=== PATIENT | female | born 1955 | race Caucasian/White ===

== ENCOUNTER → 2016-05-06 | Outpatient (REF) | payer OTHER | LOC: M LAB REF 16:42 | PROVIDERS: ATTEND Nurse Practitioner Adult Health | DX: R19.7 Diarrhea, unspecified (principal) ==

== ENCOUNTER → 2016-05-23 | Outpatient (REF) | payer OTHER ==
[2016-05-23 14:26] LABS: CA 125 8.7 U/ML (<30.2)
[2016-05-27 00:06] LABS: TISSUE TRANSGLUTAMINASE IgG <2 U/mL (0-5)
== END | disposition home or self-care (01) ==
LOC: M LAB REF 11:56
PROVIDERS: ATTEND Nurse Practitioner Family
DX: Z85.43 Personal history of malignant neoplasm of ovary (principal); R14.0 Abdominal distension (gaseous); R19.5 Other fecal abnormalities

== ENCOUNTER → 2017-04-23 | Outpatient (REF) | payer OTHER ==
[2017-04-24 17:28] LABS: CA 125 8.6 U/ML (<30.2)
== END ==
LOC: M LAB REF 10:29
DX: Z85.42 Personal history of malignant neoplasm of other parts of uterus (principal); Z85.43 Personal history of malignant neoplasm of ovary

== ENCOUNTER 2017-12-17 08:01 | Day surgery (SDC) | payer OTHER ==
[2017-12-17] MEDS: PHENYLEPHRINE 2.5% OPHTH SOL 2ML OD (08:30)
[2017-12-17] MEDS: PROPARACAINE 0.5% OPHTH SOL 15ML OD (08:30)
[2017-12-17] MEDS: TROPICAMIDE 1% OPHTH SOLN 2ML OD (08:35)
[2017-12-17] MEDS: OFLOXACIN 0.3 % (OCUFLOX) OPTH SOL 5ML OD (08:36)
[2017-12-17] MEDS: BALANCED SALT IRRIGATION SOLUTION 500ML BAG (FOR OR EYE MACHINE) As Ordered (10:22)
[2017-12-17] MEDS: POVIDONE-IODINE 5% OPHTH PREP SOL 30ML As Ordered (10:22)
[2017-12-17] MEDS: DUOVISC (0.50ML VISCOAT/0.55ML PROVISC) OPHTH KIT As Ordered ×2 (10:30→10:41)
[2017-12-17] MEDS: LIDOCAINE 0.75%/EPINEPHRINE 0.025% IN BSS 1ML SYR INTRACAMERAL (OR ONLY) As Ordered (10:30)
[2017-12-17] MEDS: CEFUROXIME 1MG/0.1ML INTRACAMERAL INJ As Ordered (10:30)
[2017-12-17] MEDS ORDERED: fentaNYL 100 MCG/2 ML INJECTION (J3010) As Ordered (10:37)
[2017-12-17] MEDS ORDERED: MIDAZOLAM INJ 2 MG/2 ML VIAL (J2250) As Ordered (10:37)
== END 2017-12-17 11:37 | disposition home or self-care (01) ==
LOC: M SDC 08:01
DX: H25.11 Age-related nuclear cataract, right eye (principal); H52.201 Unspecified astigmatism, right eye; Z79.82 Long term (current) use of aspirin
CPT/HCPCS: 66984

== ENCOUNTER 2017-12-24 12:13 | Day surgery (SDC) | payer OTHER ==
[~2017-12-24 12:13] MED LIST: MIDAZOLAM INJ 2 MG/2 ML VIAL (J2250) As Ordered
[2017-12-24] MEDS: PROPARACAINE 0.5% OPHTH SOL 15ML OS (12:40)
[2017-12-24] MEDS: OFLOXACIN 0.3 % (OCUFLOX) OPTH SOL 5ML OS (12:45)
[2017-12-24] MEDS: TROPICAMIDE 1% OPHTH SOLN 2ML OS (12:45)
[2017-12-24] MEDS: PHENYLEPHRINE 2.5% OPHTH SOL 2ML OS (12:45)
[2017-12-24] MEDS ORDERED: fentaNYL 100 MCG/2 ML INJECTION (J3010) As Ordered (13:15)
[2017-12-24] MEDS: POVIDONE-IODINE 5% OPHTH PREP SOL 30ML As Ordered (13:19)
[2017-12-24] MEDS: BALANCED SALT IRRIGATION SOLUTION 500ML BAG (FOR OR EYE MACHINE) As Ordered (13:19)
[2017-12-24] MEDS: CEFUROXIME 1MG/0.1ML INTRACAMERAL INJ As Ordered (13:19)
[2017-12-24] MEDS: DUOVISC (0.50ML VISCOAT/0.55ML PROVISC) OPHTH KIT As Ordered ×2 (13:19→13:33)
[2017-12-24] MEDS: LIDOCAINE 0.75%/EPINEPHRINE 0.025% IN BSS 1ML SYR INTRACAMERAL (OR ONLY) As Ordered (13:19)
[2017-12-24] MEDS ORDERED: MIDAZOLAM INJ 2 MG/2 ML VIAL (J2250) As Ordered ×2 (13:24→13:50)
[2017-12-24] MEDS ORDERED: ONDANSETRON 4MG/2ML VIAL (J2405) IV (14:00)
== END 2017-12-24 15:45 | disposition home or self-care (01) ==
LOC: M SDC 12:13
DX: H25.12 Age-related nuclear cataract, left eye (principal); R29.898 Other symptoms and signs involving the musculoskeletal system; H91.92 Unspecified hearing loss, left ear; Z79.82 Long term (current) use of aspirin; Z90.710 Acquired absence of both cervix and uterus; Z85.41 Personal history of malignant neoplasm of cervix uteri; Z85.44 Personal history of malignant neoplasm of other female genital organs
CPT/HCPCS: 66984

== ENCOUNTER → 2019-10-05 | Outpatient (REF) | payer OTHER ==
[~2019-10-05] MED LIST changes: +ASPI325T57 PO; +ESTR25TA PO; +LEXA1TAB PO; -MIDAZOLAM INJ 2 MG/2 ML VIAL (J2250) As Ordered; +XANA0.25 PO
== END ==
LOC: M LAB REF 11:42
PROVIDERS: ATTEND Internal Medicine
DX: Z85.43 Personal history of malignant neoplasm of ovary (principal); Z85.42 Personal history of malignant neoplasm of other parts of uterus

== ENCOUNTER → 2020-03-19 | Outpatient (CLI) | payer SELFPAY | LOC: M LABSMTC 14:39 | PROVIDERS: ATTEND Pediatrics | DX: Z20.828 Contact with and (suspected) exposure to other viral communicable diseases (principal) ==

== ENCOUNTER → 2020-06-28 | Outpatient (CLI) | payer SELFPAY | LOC: M LABSMTC 09:39 | PROVIDERS: ATTEND Pediatrics | DX: Z20.828 Contact with and (suspected) exposure to other viral communicable diseases (principal) ==

== ENCOUNTER → 2020-07-23 | Outpatient (REF) | payer OTHER ==
[2020-07-24 12:11] LABS: PERCENT SATURATION 6.4 % (13.2-45.0)
== END ==
LOC: M LAB REF 16:11
PROVIDERS: ATTEND Nurse Practitioner Adult Health
DX: D64.9 Anemia, unspecified (principal); Z85.43 Personal history of malignant neoplasm of ovary

== ENCOUNTER → 2021-06-17 | Outpatient (CLI) | payer MEDICARE, OTHER | LOC: M RAD 10:57 | PROVIDERS: ATTEND Nurse Practitioner Adult Health | DX: Q27.39 Arteriovenous malformation, other site (principal) ==

== ENCOUNTER → 2021-10-18 | Outpatient (REF) | payer MEDICARE | LOC: M LAB REF 16:30 | PROVIDERS: ATTEND Nurse Practitioner Adult Health | DX: R21 Rash and other nonspecific skin eruption (principal) ==

== ENCOUNTER → 2021-12-09 | Outpatient (REF) | payer MEDICARE ==
[2021-12-09 17:45] LABS: PERCENT SATURATION 16.4 % (13.2-45.0)
== END ==
LOC: M LAB REF 16:24
PROVIDERS: ATTEND Nurse Practitioner Adult Health
DX: E61.1 Iron deficiency (principal)

== ENCOUNTER → 2022-03-04 | Outpatient (CLI) | payer MEDICARE | LOC: M RAD 07:05 | DX: Q27.8 Other specified congenital malformations of peripheral vascular system (principal) ==

== ENCOUNTER → 2022-04-21 | Outpatient (REF) | payer MEDICARE ==
[2022-04-21 19:31] LABS: PERCENT SATURATION 13.4 % (13.2-45.0)
[2022-04-21 19:35] LABS: FERRITIN 22.8 NG/ML (7.3-270.7)
[2022-04-21 19:37] LABS: HEMATOCRIT 39.3 % (36.0-47.0)
== END ==
LOC: M LAB REF 16:01
PROVIDERS: ATTEND Nurse Practitioner Adult Health
DX: D56.8 Other thalassemias (principal)

== ENCOUNTER → 2022-09-01 | Outpatient (REF) | payer MEDICARE ==
[2022-09-01 17:09] LABS: HEMATOCRIT 41.3 % (36.0-47.0)
[2022-09-01 17:18] LABS: PERCENT SATURATION 12.1 % (13.2-45.0)
[2022-09-01 17:21] LABS: FERRITIN 21.1 NG/ML (7.3-270.7)
== END ==
LOC: M LAB REF 16:21
PROVIDERS: ATTEND Nurse Practitioner Adult Health
DX: E61.1 Iron deficiency (principal)

== ENCOUNTER → 2023-09-15 | Outpatient (REF) | payer MEDICARE | LOC: M LAB REF 18:18 | PROVIDERS: ATTEND Nurse Practitioner Adult Health | DX: E61.1 Iron deficiency (principal) ==

== ENCOUNTER → 2023-11-09 | Outpatient (CLI) | payer MEDICARE | LOC: M WUC 10:36 | PROVIDERS: ATTEND Internal Medicine | DX: M25.512 Pain in left shoulder (principal); R07.81 Pleurodynia ==

== ENCOUNTER → 2024-05-17 | Outpatient (REF) | payer MEDICARE | LOC: M LAB REF 16:45 | PROVIDERS: ATTEND Nurse Practitioner Adult Health | DX: E61.1 Iron deficiency (principal) ==

== ENCOUNTER → 2024-05-30 | Outpatient (CLI) | payer MEDICARE ==
[~2024-05-30] MED LIST changes: +ISOVUE-370 76% 100ML VIAL ONE
== END ==
LOC: M PLAIMG 13:54
PROVIDERS: ATTEND Nurse Practitioner Adult Health
DX: M54.50 Low back pain, unspecified (principal); Z85.42 Personal history of malignant neoplasm of other parts of uterus; K80.20 Calculus of gallbladder without cholecystitis without obstruction; M47.817 Spondylosis without myelopathy or radiculopathy, lumbosacral region
CPT/HCPCS: 72110; 74178; Q9967

== ENCOUNTER → 2024-11-15 | Outpatient (REF) | payer MEDICARE ==
[~2024-11-15] MED LIST changes: -ISOVUE-370 76% 100ML VIAL ONE
== END ==
LOC: M LAB REF 14:34
PROVIDERS: ATTEND Nurse Practitioner Adult Health
DX: M54.50 Low back pain, unspecified (principal); M79.605 Pain in left leg; Z11.59 Encounter for screening for other viral diseases